=== PATIENT | male | born 1950 | race Caucasian/White ===

== ENCOUNTER 2016-12-13 07:36 | Day surgery (SDC) | payer MEDICARE, OTHER ==
[~2016-12-13] VITALS: Ht 175.3 cm; Wt 103.5 kg
--- NOTE | ~2016-12-13 | OR ---
PATIENT'S NAME: KIM LYNN [facility] AGE: 66 Y [address] ROOM: [place] [address] LOCATION: [facility] [place] ADMIT DATE: 12/13/2016 OR/Procedure Report DISCHARGE DATE: FAMILY PHYSICIAN: TIAGO ARMSTRONG ATTENDING PHYSICIAN: Vielka Arvizu SURGEON: Vielka Arvizu MD MEDICAL PARASITOLOGIST: DATE OF PROCEDURE: 12/13/2016 PREOPERATIVE DIAGNOSIS: Large bladder tumor. POSTOPERATIVE DIAGNOSIS: Large bladder tumor. PROCEDURES PERFORMED: Cystoscopy, TURBT, and Gregorio catheter placement. ANESTHESIA: General. COMPLICATIONS: None. INDICATION FOR PROCEDURE: The patient is a 66-year-old male with gross hematuria. Cystoscopy revealed a large tumor on the left lateral bladder wall near the trigone area and bladder neck. DETAILS OF PROCEDURE: After informed consent obtained, the patient taken to the operating room. A general anesthetic was applied. He was placed in a dorsal lithotomy position. The groin area was prepped and draped in normal sterile fashion. Resectoscope sheath was introduced into the urethra and bladder. The bladder was inspected. Again, he was noted to have a large tumor on the left side of the bladder. This encompassed the included the lateral wall near the bladder neck and the trigone area. The left ureteral orifice was not visualized. Next, the resectoscope was introduced and the resection on the tumor was begun. The tumor again was quite large and there was no stalk present. It invaded directly into the bladder wall. I resected all visible tumor down to what appeared to be the muscular layer. Bleeding areas were fulgurated. The specimen was irrigated out. At the end the procedure, good hemostasis was achieved and a 20-Japanese Gregorio catheter was placed. The patient tolerated the procedure well and was transferred to recovery room in good condition. VIELKA ARVIZU MD TORY/modl PATIENT'S NAME: KIM LYNN [facility] AGE: 66 Y [address] ROOM: [place] [address] LOCATION: [facility] [place] ADMIT DATE: 12/13/2016 OR/Procedure Report DISCHARGE DATE: FAMILY PHYSICIAN: TIAGO ARMSTRONG. ATTENDING PHYSICIAN: Vielka Arvizu /[id number] CC: TIAGO ARMSTRONG MD d: 12/13/16 1427 t: 12/16/16 1237, OPERATIVE SUMMARY
[~2016-12-13 07:36] MED LIST: ASPIRIN EC81 MG PO; GLUCOPHAGE500 MG PO; IMDUR60 MG PO; LANTUS SOL100 UNIT/1 SUB-Q; NORVASC10 MG PO; NOVOLOG FL100 UNIT/1 SUB-Q; PRAVACHOL80 MG PO; TENORMIN100 MG PO; ZESTRIL40 MG PO
[2016-12-13] MEDS ORDERED: LEVAQUIN 250 M250 MG PO (10:49)
[2016-12-13] MEDS ORDERED: TYLENOL WITH C1 EACH PO (10:50)
== END 2016-12-13 12:35 | disposition disaster alternative care site (69) ==
LOC: GMSU 07:36 → GSDC 07:36
PROC: 0TBB8ZZ Excision of Bladder, Via Natural or Artificial Opening Endoscopic (ICD-10-PCS; principal; 2016-12-13)
DX: C67.2 Malignant neoplasm of lateral wall of bladder (principal); I10 Essential (primary) hypertension; E11.9 Type 2 diabetes mellitus without complications; E78.5 Hyperlipidemia, unspecified; Z87.891 Personal history of nicotine dependence; Z79.4 Long term (current) use of insulin; Z79.82 Long term (current) use of aspirin; Z79.84 Long term (current) use of oral hypoglycemic drugs; Z79.899 Other long term (current) drug therapy; Z98.890 Other specified postprocedural states
CPT/HCPCS: J1956; J3010; J7030; Q9967

== ENCOUNTER → 2017-01-29 | Outpatient (CLI) | payer MEDICARE, OTHER ==
[~2017-01-29] MED LIST changes: +LEVAQUIN 250 M250 MG PO; +TYLENOL WITH C1 EACH PO
== END | disposition disaster alternative care site (69) ==
LOC: GRAD 01-25 15:30
DX: C67.2 Malignant neoplasm of lateral wall of bladder (principal); R91.8 Other nonspecific abnormal finding of lung field; K80.20 Calculus of gallbladder without cholecystitis without obstruction; Q61.02 Congenital multiple renal cysts
CPT/HCPCS: Q9967

== ENCOUNTER → 2017-03-19 | Outpatient (CLI) | payer MEDICARE, OTHER | END | disposition disaster alternative care site (69) | LOC: GRAD 15:03 | DX: M79.662 Pain in left lower leg (principal); C67.2 Malignant neoplasm of lateral wall of bladder; K21.9 Gastro-esophageal reflux disease without esophagitis; K12.31 Oral mucositis (ulcerative) due to antineoplastic therapy; R93.7 Abnormal findings on diagnostic imaging of other parts of musculoskeletal system ==

== ENCOUNTER → 2017-03-20 | Outpatient (CLI) | payer MEDICARE, OTHER ==
--- NOTE | ~2017-03-20 | ENPV ---
Vascular Lower Extremities DVT Study Procedure Demographics Patient Name KIM LYNN Date of Study 03/20/2017 Patient Number [id number] Gender Male Date of 1950 Age 67 Visit Number [id number] Height Accession Number [id number] Weight Room Number BSA BMI Referring Vanessa Santo MD Interpreting Floyd Watkins MD Physician Homero Azevedo Physician Physician Ordering Physician Vanessa Santo Spice Grinder Director [employer] Shilpi Canales Conclusions Summary Normal venous duplex examination of the legs bilaterally with normal venous Doppler signals noted throughout. No evidence of thrombophlebitis is noted bilaterally in the deep and superficial veins of the legs. Small calf thrombi cannot be excluded. Procedure Type of Study: Veins:Lower Extremities DVT Study, Lower Extremity Left. Additional Indications:Left leg pain and swelling. Appropriate Use Criteria:9 Patient Status:NAYELI. Study Location:Vascular Lab. Technical Quality:Adequate visualization. - Preliminary reported to:Dr. Mendez. Velocities are measured in cm/s ; Diameters are measured in cm Right Lower Extremities DVT Study Measurements Right 2D and Doppler Measurements + + + + +------+------+ + !Location !Visualized!Compressibility!Thrombosis!Signal!Reflux!Reflux ! ! ! ! ! ! ! !(sec) ! + + + + +------+------+ + !Common !Yes !Yes !None !Phasic!No ! ! !Femoral ! ! ! ! ! ! ! + + + + +------+------+ + Left Lower Extremities DVT Study Measurements Left 2D and Doppler Measurements + + + + +------+------+ + !Location !Visualized!Compressibility!Thrombosis!Signal!Reflux!Reflux ! ! ! ! ! ! ! !(sec) ! + + + + +------+------+ + !GSV Thigh !Yes !Yes !None !Phasic!No ! ! + + + + +------+------+ + !Common !Yes !Yes !None !Phasic!No ! ! !Femoral ! ! ! ! ! ! ! + + + + +------+------+ + !Prox !Yes !Yes !None !Phasic!No ! ! !Femoral ! ! ! ! ! ! ! + + + + +------+------+ + !Mid Femoral!Yes !Yes !None !Phasic!No ! ! + + + + +------+------+ + !Dist !Yes !Yes !None !Phasic!No ! ! !Femoral ! ! ! ! ! ! ! + + + + +------+------+ + !Popliteal !Yes !Yes !None !Phasic!No ! ! + + + + +------+------+ + !PTV !Yes !Yes !None ! ! ! ! + + + + +------+------+ + !Peroneal !Yes !Yes !None ! ! ! ! + + + + +------+------+ + Signature dtt: LONI GERMAIN dtd: 03/20/17 1534 Physician Self Edit
== END | disposition disaster alternative care site (69) ==
LOC: GCAR 15:00
DX: M79.89 Other specified soft tissue disorders (principal)